=== PATIENT | female | born 2005 | race Caucasian/White ===

== ENCOUNTER 2024-06-09 13:10 | Emergency (ER) | payer OTHER ==
[~2024-06-09] VITALS: Ht 172.7 cm; Wt 146.9 kg
[2024-06-09] MEDS ORDERED: LEXA1TAB PO (13:36)
[2024-06-09] MEDS ORDERED: ONDA-282 PO (13:36)
[2024-06-09] MEDS ORDERED: TOPI25CA5 PO (13:36)
[2024-06-09] MEDS ORDERED: NAPR-837 PO (13:36)
[2024-06-09] MEDS ORDERED: RIZA10TA58 PO (13:36)
[2024-06-09] MEDS ORDERED: HYDR-3363 PO (13:36)
[2024-06-09 15:24] LABS: BASO % 0.3 % (0.0-1.0); EOS # 0.2 10^3/uL (0.0-0.5); EOS % 2.4 % (0.0-3.0); HEMATOCRIT 38.7 % (36.0-47.0); HEMOGLOBIN 12.6 g/dl (12.0-15.5); LYMPH # 2.6 10^3/uL (1.5-5.0); LYMPH % 29.8 % (24.0-44.0); MEAN CORPUSCULAR HEMOGLOBIN 27.8 pg (27.0-33.0); MEAN CORPUSCULAR HGB CONC 32.6 g/dl (32.0-36.5); MEAN CORPUSCULAR VOLUME 85.2 fl (80.0-96.0); MONO # 0.7 10^3/uL (0.0-0.8); MONO % 7.9 % (2.0-8.0); NEUTROPHILS # 5.2 10^3/uL (1.5-8.5); NEUTROPHILS % 59.4 % (36.0-66.0); PLATELET COUNT, AUTOMATED 318 10^3/uL (150-450); RED BLOOD COUNT 4.54 10^6/uL (4.00-5.40); WHITE BLOOD COUNT 8.8 10^3/uL (4.0-10.0)
[2024-06-09 15:29] LABS: ERYTHROCYTE SEDIMENTATION RATE 22 mm/hr (0-20)
[2024-06-09 15:59] LABS: ALBUMIN 3.9 G/DL (3.2-5.2); ALKALINE PHOSPHATASE 81 U/L (46-116); ALT/SGPT 36 U/L (7.0-40); AST/SGOT 11 U/L (<34); BILIRUBIN,DIRECT < 0.1 MG/DL (<0.4); BILIRUBIN,TOTAL 0.3 MG/DL (0.3-1.2); MAGNESIUM LEVEL 1.9 MG/DL (1.8-2.4); TOTAL PROTEIN 6.8 G/DL (5.7-8.2)
[2024-06-09] MEDS: NS 1,000 ML IV ONE (17:09)
[2024-06-09] MEDS: diphenhydrAMINE 50MG/ML VIAL IV ONE (17:10)
[2024-06-09] MEDS: METOCLOPRAMIDE INJ 10MG/2ML VIAL IV ONE (17:15)
[2024-06-09 17:27] VITALS: TEMP 98.4
[2024-06-09] MEDS: KETOROLAC 30 MG/ML 1ML VIAL IV ONE (18:25)
[2024-06-09 19:24] VITALS: BP 121/58; O2SAT 98
== END 2024-06-09 19:26 | disposition home or self-care (01) ==
LOC: M ED 13:10
DX: G43.909 Migraine, unspecified, not intractable, without status migrainosus (principal); F32.A Depression, unspecified; Z79.899 Other long term (current) drug therapy; Z79.1 Long term (current) use of non-steroidal anti-inflammatories (NSAID); Z79.83 Long term (current) use of bisphosphonates
CPT/HCPCS: 70450; 80047; 80076; 81025; 83735; 85025; 85652; 86140; 96361; 96374; 96375; 99284; J1100; J1200; J1885; J2765